=== PATIENT | female | born 1985 | race Caucasian/White ===

== ENCOUNTER 2023-01-31 11:30 | Inpatient (IN) | payer SELFPAY ==
[2023-01-31] VITALS (16 sets, daily range): BP systolic 86–117; BP diastolic 52–75; PULSE 52–80; RESP 12–16; TEMP 35.9–36.6; O2SAT 96–99; BMI 26.4
[2023-01-31] MEDS: Lactated Ringers 1,000 ML 999 ML IV (11:45)
[2023-01-31 12:14] LABS: Absolute Lymphocyte Count 0.89 X10^3/uL (0.83-4.51); Absolute Neutrophil Count 9.5 X10^3/uL (2.0-7.7); Basophil# 0.03 X10^3/uL; Basophil% 0.3 % (0-1); Eosinophil# 0.02 X10^3/uL; Eosinophils% 0.2 % (0-5); Hematocrit 33.6 % (37-47); Hemoglobin 10.9 g/dL (12.0-15.0); Lymphocyte # 0.89 X10^3/ul (0.83-4.51); Lymphocyte % 8.3 % (19-41); Mean Corp Hgb Conc 32.4 g/dL (32-36); Mean Corpuscular Hgb 28.7 pg (27.0-32.0); Mean Corpuscular Volume 88.4 fL (81-99); Mean Platelet Vol. 9.8 fl (6.2-12.0); Monocyte# 0.34 X10^3/uL; Monocyte% 3.2 % (0-10); NRBC Flagged by Analyzer 0 % (0-5); Neutrophil # 9.45 X10^3/uL (2.7-7.7); Neutrophil % 87.5 % (47-70); Platelet Count 228 K/mm3 (150-450); RBC Distribution Width CV 13.2 % (11.6-14.6); RBC Distribution Width SD 42.5 fl (35.1-43.9); White Blood Count 10.8 K/mm3 (4.4-11.0)
[2023-01-31 12:34] LABS: Fibrinogen 464 mg/dl (203-444)
[2023-01-31] MEDS: Cefazolin 2 GM in 0.9% Normal Saline 100 ML IV (12:49)
[2023-01-31 13:30] LABS: Rubella IgG Reactive (Nonreactive)
--- NOTE | 2023-01-31 14:00 | PCM.HP.OB ---
HPI - General General Date of Admission: 01/31/23 Date of Service: 01/31/23 Chief Complaint: vaginal bleeding and leaking fluid HPI Narrative LIN ROSE, is a 37 F who presents at 34 week gestation from OSH with PROM, VB, uterine contractions, breech presentation. Received care through decating machine operator at outside facility. Was at [facility] for leaking of fluid and vaginal bleeding. At OSH Actim PROM was positive, fern was positive. A formal ultrasound showed normal appearing and fundal placenta, breech presentation. Cvx was 2 cm dilated and pt was bola but contractions were mild. She was transferred here for further care after receiving 1 dose of BMZ. [facility] Medical History (Updated 01/31/23 @ 14:[address] Niru Campuzano, ) Family history of hearing loss at age younger than 7 years Home Medications docosahexaenoic acid PO 01/31/23 [History Last Taken 01/30/23] iron [id number] thr-succ 150 mg-800 mcg-140 mg tablet tab PO anemia 01/31/23 [History Last Taken 01/30/23] Allergy/AdvReac Type Severity Reaction Status Date / Time No Known Allergies Allergy Verified 01/31/23 12:05 Surgical History History of surgery NST FHR Rate Baby A Baseline: 135 Variability:: Moderate Accelerations:: 15 x 15 Decelerations:: None NST Reactive:: Yes Uterine Activity:: ctx's q 3-4 min Vital Signs Vital Signs Vital Signs: Weight Weight: 140 lb Body Mass Index (BMI) 26.4 Labs Labs Labs: Blood Type O POSITIVE Antibody Screen NEGATIVE Hct 33.6 % (37-47) L Hgb 10.9 g/dL (12.0-15.0) L Syphilis Total Ab Non-reactive Rubella IgG Antibody Reactive (Nonreactive) Hep Bs Antigen Non-Reactive (Nonreactive) HIV 1&2 Antibody Non-Reactive (Nonreactive) Drawn at time of admission as no records of labs available Assessment & Plan (1) 34 weeks gestation of : PLAN: Patient presented from outside hospital with leaking of fluid, vaginal bleeding, uterine contractions. At outside hospital the Actim PROM was positive and fern was positive. Her cervix was 2 cm dilated and she was having mild contractions. Noted to have moderate vaginal bleeding on exam. She was transferred here for further care after being given 1 dose of betamethasone for lung maturity. A formal ultrasound showed breech presentation. - S/p 1 dose of BMZ - Bola q 3-4 min and patient reports contractions are getting stronger in intensity - Bedside TAUS performed confirming breech presentation - Discussed patient with provider diamond wheel molder at OSH and reported to be ruptured based on Actim PROM and ferning - Given breech presentation, PROM, uterine contractions, and concern for placental abruption recommend proceeding with a section. Discussed r/b/a to a primary section with the patient and she desires to proceed. Consent obtained. Pre op antibiotics ordered. labs and abruption labs obtained. See operative report for details. (2) PROM (premature rupture of membranes): (3) uterine contractions: (4) Vaginal bleeding: (5) Breech presentation:
[2023-01-31 14:01] LABS: HIV - WCH Non-Reactive (Nonreactive); Hepatitis B Surface Antigen Non-Reactive (Nonreactive); Hepatitis C Antibody Non-Reactive (Nonreactive); Syphilis Antibodies Non-reactive
--- NOTE | 2023-01-31 14:10 | PCM.OPRPT ---
Problems Associated Problem List Diagnoses (1) Breech presentation: (2) Vaginal bleeding: (3) uterine contractions: (4) PROM (premature rupture of membranes): (5) 34 weeks gestation of : Report of Operation Date of Procedure: 01/31/23 Pre-Operative Diagnosis: 34 week gestation, PROM, uterine contractions, cervical dilation, vaginal bleeding, breech presentation Post-Operative Diagnosis: As above, placental abruption Surgery/Procedure Performed:: PLTCS via pfannenstiel incision Description of Surgical Findings:: VFI in jaswant breech presentation. Apgars 8, 8. Retroplacental clot noted and placenta otherwise normal appearing. Suspect placental abruption based on clotting present. Uterus with a 4 cm subserosal, anterior fibroid noted above the hysterotomy. Normal appearing bilateral adnexa. Surgeon: Niru Campuzano pellet machine operator: Lisa LASSITER Type of Anesthesia: Spinal Special Medications: None Specimen's removed: Placenta sent to pathology Drains: Hewitt Estimated Blood Loss (mL): 600 Fluids Replaced: 1000 mL Description of Procedure: The patient was taken to the operating room where spinal anesthesia was found to be adequate. She was prepped and draped in the dorsal supine position with a leftward tilt. A Pfannenstiel skin incision was made using the scalpel and this was carried down to the underlying layer of fascia. The fascia was incised in the midline. The fascia was extended laterally using Guzman scissors. The fascia was minimally dissected off the rectus muscles in a cephalad and caudad direction. The rectus muscles were in the midline bluntly. The peritoneum was entered bluntly with good visualization of the bladder. The peritoneal incision was extended with traction laterally. A bladder blade was inserted. A low transverse incision was made on the uterus with a scalpel. The uterine incision was extended with cephalad and caudad traction. The buttocks of the infant was delivered through the hysterotomy and with gentle traction the body and legs of the infant were delivered in jaswant breech presentation. Both arms were delivered, followed by the head of the which was flexed during delivery. A vigorous viable female infant was delivered in jaswant breech presentation without any force or delay. The cord was clamped and cut after slight delay and the was handed off to the waiting nursery staff. The placenta was removed and a retroplacental clot was noted. The placenta was otherwise normal-appearing. The placenta was sent to pathology for review and suspect placental abruption. The uterus was cleared of all clot and debris. The uterus was exteriorized. The hysterotomy was closed with 1-0 Vicryl in a running locked fashion. A second imbricating layer using 1-0 Vicryl was used. Hemostasis was noted. Bilateral adnexa were normal-appearing. There was a 4 cm anterior, subserosal fibroid noted. The uterus was placed back into the abdomen. Austin was placed over the lower uterine segment and hysterotomy. Hemostasis was again noted. The rectus muscles were hemostatic. The fascia was closed with strata fix in a running fashion. Subcutaneous space was irrigated and made hemostatic with Bovie cautery. The subcutaneous space was reapproximated with 3-0 Vicryl. The skin was closed with 4-0 Monocryl in a subcuticular fashion. A dressing was placed. Intermittent, sponge, sharp counts were correct and the patient was taken to the recovery room in stable condition. Hotel Administrative Assistant Lisa LASSITER was present for the entire case and assisted with draping the patient, delivery of , and closure. Grafts/Implants Used: None Procedure Start Time: 13:10 Procedure Stop Time: 13:51 Complications None Admit VTE Documentation VTE Present on Admission: No VTE Mechan Device Prophylaxis: SCD's
[2023-01-31] MEDS: Acetaminophen 500 MG Tablet 1000 MG PO ×2 (14:25→20:46)
[2023-01-31] MEDS: Oxytocin 15 Units/NS 250ml 15 UNITS/250 ML IV.SOLN 83 UNITS IV (14:30)
[2023-01-31] MEDS: Ketorolac 30 MG/ML Syringe IV ×2 (14:33→20:46)
[2023-01-31] MEDS: Ondansetron 4 MG/2 ML Vial IV ×2 (15:59→22:38)
[2023-01-31] MEDS: Lactated Ringers 1,000 ML 100 ML IV (17:00)
[2023-02-01 01:01] VITALS: BP 89/47; PULSE 53; RESP 16; TEMP 36.2; O2SAT 96
[2023-02-01] MEDS: Ketorolac 30 MG/ML Syringe IV ×2 (03:36→09:16)
[2023-02-01] MEDS: Acetaminophen 500 MG Tablet 1000 MG PO ×3 (03:37→13:43)
[2023-02-01 03:57] VITALS: BP 99/44; PULSE 48; RESP 16; TEMP 35.9; O2SAT 97
[2023-02-01 06:24] LABS: Hematocrit 28.5 % (37-47); Hemoglobin 9.2 g/dL (12.0-15.0); Mean Corp Hgb Conc 32.3 g/dL (32-36); Mean Corpuscular Hgb 28.9 pg (27.0-32.0); Mean Corpuscular Volume 89.6 fL (81-99); Mean Platelet Vol. 10.2 fl (6.2-12.0); Platelet Count 214 K/mm3 (150-450); RBC Distribution Width CV 13.2 % (11.6-14.6); RBC Distribution Width SD 43.8 fl (35.1-43.9); Red Blood Count 3.18 M/mm3 (4.2-5.4); White Blood Count 15.3 K/mm3 (4.4-11.0)
[2023-02-01 07:56] VITALS: BP 90/58; PULSE 54; RESP 16; TEMP 36.1; O2SAT 96
[2023-02-01] MEDS: Senna/Docusate Sodium 1 Tablet PO (09:16)
--- NOTE | 2023-02-01 10:18 | PCM.DC ---
Discharge Instructions Diet Discharge Diet: No restrictions Activity Discharge Activity: May Not Drive and May Shower May resume sexual activity in: 6 weeks Ice area for (Minutes): 15 Weight Bearing Status: Weight bearing as tolerated Lifting Restrictions: nothing heavier than baby Dressing / Incision Call your doctor if your incision/area has: Continuous Slow Oozing, Sudden Increased Bleeding, Increased Pain/ Swelling, Increased Redness, Foul Smelling Discharge and Swelling at the incision site Call your doctor if you observe: Fever of 101 or Higher, Coldness, Increased Pain, Numbness or Tingling, Change in Color, Inability to urinate, Inability to have a bowel movement, Using more than 1 pad per hour, Shortness of breath, Dizziness, Fainting spells, Swelling in the ankles, Chest pain, Increased palpitations (irregular heartbeat), Calf discomfort and Uncontrolled pain Suture Line Care: Avoid Pulling/Pushing and Avoid Pinching/Bending Remove Dressing in: 3 days (Ok to remove in shower) Cleanse incision/area with: Soap & Water and Keep Dressing Clean & Dry Follow Up Care Please Follow Up With: Niru Campuzano DO When: 1-2 weeks for incision check 6 weeks for visit Test Results: Test results from this visit will be discussed in further detail at your follow-up appointment, if applicable. Discharge Plan Admission Admit Date/Time: 01/31/23 11:30 Primary Reason for Your Visit: delivery Attending Provider: Niru Campuzano Primary Care Provider: Ki Orosco Instructions Patient Instructions: Section Dc Additional Instructions / Restrictions: Talk to your automatic teller machine servicer about iron supplementation. Discharge Orders/Prescriptions Prescriptions: New ibuprofen 600 mg tablet 600 mg PO Q6H PRN (Reason: pain) Qty: 30 0RF docusate sodium [Colace] 100 mg capsule 100 mg PO BID Qty: 30 0RF acetaminophen [Tylenol] 325 mg tablet 650 mg PO Q6H PRN (Reason: pain) Qty: 30 0RF Continued docosahexaenoic acid [ DHA] PO iron [id number] 150-800-140 mg-mcg-mg tablet PO Referrals / Follow Up: Ki Orosco DO [Primary Care Provider] - Disposition Disposition (needs filled in before D/C Order can be placed): Home, Self Care
--- NOTE | 2023-02-01 10:19 | PCM.PN.OB ---
Subjective Subjective Pt is doing well. She denies lightheadedness, dizziness, chest pain, shortness of breath, leg pain. Lochia is normal. She is tolerating a regular diet without nausea or vomiting. Pain is well controlled. She is ambulating and voiding without difficulty. Objective Data Objective Data Vital Signs: Vital Signs Temp Pulse Resp BP Pulse Ox O2 Del Method 97 F L 54 L 16 90/58 L 96 Room Air 02/01/23 07:56 02/01/23 07:56 02/01/23 07:56 02/01/23 07:56 02/01/23 07:56 02/01/23 07:56 Oxygen Delivery Method Room Air Weight: 140 lb Body Mass Index (BMI) 26.4 Intake & Output: Intake and Output for Last 24 Hours 01/30/23 01/31/23 02/01/23 23:59 23:59 23:59 Intake Total 1614 / 1614 1000 / 1000 Output Total 850 / 850 725 / 725 Balance 764 / 764 275 / 275 Lab / Micro Data 02/01/23 06:10 Labs: Laboratory Results - last 24 hr 01/31/23 11:55: WBC 10.8, RBC 3.80 L, Hgb 10.9 L, Hct 33.6 L, MCV 88.4, MCH 28.7, MCHC 32.4, RDW Std Deviation 42.5, RDW Coeff of Melvina 13.2, Plt Count 228, MPV 9.8, Immature Gran % (Auto) 0.500, Neut % (Auto) 87.5 H, Lymph % (Auto) 8.3 L, Elk % (Auto) 3.2, Eos % (Auto) 0.2, Baso % (Auto) 0.3, Absolute Neuts (auto) 9.5 H, Absolute Lymphs (auto) 0.89, Nucleated RBC % 0, Fibrinogen 464 H, Syphilis Total Ab Cancelled 01/31/23 11:55: Syphilis Total Ab Non-reactive, Hep Bs Antigen Non-Reactive, Hepatitis C Antibody Non-Reactive, HIV 1&2 Antibody Non-Reactive, Rubella IgG Antibody Reactive, Blood Type O POSITIVE, Antibody Screen NEGATIVE 02/01/23 06:10: WBC 15.3 H, RBC 3.18 L, Hgb 9.2 L, Hct 28.5 L, MCV 89.6, MCH 28.9, MCHC 32.3, RDW Std Deviation 43.8, RDW Coeff of Melvina 13.2, Plt Count 214, MPV 10.2 Micro: Microbiology 01/31/23 16:00 Interface Orders Chlamydia trachomatis (PCR) - Final 01/31/23 16:00 Interface Orders Neisseria gonorrhoeae (PCR) - Final Physical Exam Const alert and no apparent distress General Appearance: comfortable Resp normal respiratory effort GI soft to palpation GI Narrative: ATTP, non acute, dressing c/d/i Extremity no calf tenderness Assessment & Plan (1) Delivery by section: PLAN: POD#1 s/p BRONSON section. Pt doing well and desires discharge. D/c instructions reviewed. Discussed likely placental abruption and reviewed this in detail. Questions answered regarding placental abruptions. She denies h/o HTN, falls, abdominal trauma. Discussed great candidate for TOLAC with next . Discussed strongly recommend delivery in hospital setting with TOLAC and reviewed risks with TOLAC. To follow up in 1-2 weeks for incision check. Baby was transferred to [place]. She is going to resume care with her pharmacy picking tech for next 24-48 hours. (2) Acute on chronic blood loss anemia: PLAN: Recommend iron supplementation. She states she uses an herbal supplement through her pharmacy picking tech and she will discuss this further with her.
[2023-02-01 12:30] VITALS: BP 92/57; PULSE 63; RESP 16; TEMP 36.6; O2SAT 95
[2023-02-01] MEDS: Ibuprofen 600 MG Tablet PO (13:43)
== END 2023-02-01 13:50 | disposition home or self-care (01) | DRG 786 ==
PROVIDERS: Admitting Provider Obstetrics & Gynecology; PCP Family Medicine; Visit Provider Obstetrics & Gynecology
DX: O45.93 Premature separation of placenta, unspecified, third trimester (principal); O60.14X0 Preterm labor third trimester with preterm delivery third trimester, not applicable or unspecified; D62 Acute posthemorrhagic anemia; O90.81 Anemia of the puerperium; O32.1XX0 Maternal care for breech presentation, not applicable or unspecified; O42.913 Preterm premature rupture of membranes, unspecified as to length of time between rupture and onset of labor, third trimester; Z37.0 Single live birth; O34.13 Maternal care for benign tumor of corpus uteri, third trimester; D25.2 Subserosal leiomyoma of uterus; Z3A.34 34 weeks gestation of pregnancy
CPT/HCPCS: 59050; 85025; 85027; 85384; 86703; 86762; 86780; 86803; 86850; 86900; 86901; 87340; 87491; 87591; 99221; J7120; G0378; J2405